=== PATIENT | male | born 1955 | race Caucasian/White ===

== ENCOUNTER → 2018-08-08 09:08 | Outpatient (CLI) | payer OTHER, SELFPAY ==
--- NOTE | 2018-08-08 | DI.ECHO.S_ITS ---
[facility]---------+ [facility] +---------+ : : [address] : [place] : : : : [id number] : : : : Phone: [phone]+ Echocardiogram Report + + :Name: MANFRED LOPEZ Study Date: 08/08/2018 Height: 70 in : :[facility] Weight: 240 lb : : Gender: Male BSA: 2.3 m2 : :: 1955 Age: 62 yrs BP: 142/98 mmHg: :Reason For Study: Dizziness : : Performed By: Jewels Dave : :Referring: JESSICA CARSON : + + Interpretation Summary The left ventricle is normal in size. The ejection fraction is estimated to be 55-60%. The right ventricle is grossly normal size. The right ventricular systolic function is normal. No significant valvular pathology seen. The ascending aorta is moderately enlarged. Procedure: A two-dimensional transthoracic echocardiogram with color flow and Doppler was performed. The study quality was technically adequate. There is no prior echocardiogram noted for this patient. The patient was in normal sinus rhythm during the exam. Left Ventricle: The left ventricle is normal in size. There is normal left ventricular wall thickness. There is no thrombus. The ejection fraction is estimated to be 55-60%. There are no focal wall motion abnormalities. MV E/A: 0.64 Med Peak E' Trip: 4.7 cm/sec E/E' med: 12.8. Right Ventricle: The right ventricle is grossly normal size. The right ventricular systolic function is normal. Atria: The left atrium is moderately dilated. The right atrium is moderately dilated. The interatrial septum is intact with no evidence for an atrial septal defect. Mitral Valve: There is mild mitral annular calcification. There is trace mitral regurgitation. Aortic Valve: The aortic valve is trileaflet. The aortic valve opens well. There is trace aortic regurgitation. Tricuspid Valve: The tricuspid valve is normal in structure and function. No tricuspid regurgitation. Pulmonic Valve: The pulmonic valve is not well seen, but is grossly normal. There is trace pulmonic regurgitation. Great Vessels: The aortic root is mildly dilated. The ascending aorta is moderately enlarged. The aortic arch is mildly enlarged. The IVC is of normal diameter and collapses greater than 50% with a sniff. This suggests a low right atrial pressure of 3 mm Hg. Pericardium/ Pleura There is no pericardial effusion. There is no pleural effusion. MMode/2D Measurements & Calculations LVIDd: 5.7 cm Ao root diam: 4.3 cm LVIDs: 4.0 cm Aortic Jxn: 3.8 cm FS: 30.6 % asc Aorta Diam: 4.4 cm EPSS: 0.90 cm Ao Arch Diam (Prox Trans): 3.5 cm IVSd: 1.1 cm LVPWd: 1.0 cm LV craig. diameter/BSA (cm/m^2): 2.5 LV sys. diameter/BSA (cm/m^2): 1.8 LA dimension: 4.7 cm RA long axis: 5.5 cm LA A2 area: 25.4 cm2 RA area: 26.0 cm2 LA A4 area: 26.8 cm2 RA vol: 104.7 ml LA length (vol): 5.7 cm RA : 46.4 ml/m2 LA vol: 101.4 ml IVC diam: 1.7 cm LA vol index: 44.9 ml/m2 RVDd major: 5.9 cm RVD1 (basal): 4.0 cm RVD2 (mid): 3.1 cm Doppler Measurements & Calculations Ao V2 max: 143.8 cm/sec MV E max trip: 60.5 cm/sec Ao V2 mean: 86.4 cm/sec MV A max trip: 94.1 cm/sec Ao max P.3 mmHg MV E/A: 0.64 Ao mean P.6 mmHg Med Peak E' Trip: 4.7 cm/sec Ao V2 VTI: 29.2 cm E/E' med: 12.8 Lat Peak E' Trip: 7.4 cm/sec E/E' lat: 8.2 E/e' average: 10.5 MV dec time: 0.31 sec MV P1/2t: 90.8 msec PA V2 max: 75.0 cm/sec MV P1/2t max trip: 61.0 cm/sec PA V2 mean: 52.2 cm/sec MVA(P1/2t): 2.4 cm2 PA mean P.2 mmHg PA Accel Time: 0.11 sec Reading Physician:PM
== END ==
PROVIDERS: PCP Student in an Organized Health Care Education/Training Program; Visit Provider Student in an Organized Health Care Education/Training Program
DX: R42 Dizziness and giddiness (principal); I77.810 Thoracic aortic ectasia
CPT/HCPCS: 93306

== ENCOUNTER → 2021-09-16 09:14 | Outpatient (CLI) | payer MEDICARE, OTHER, SELFPAY ==
[2021-09-16 10:20] LABS: Alanine Aminotransferase 17 IU/L (<50); Albumin 4.3 g/dL (3.5-5.0); Albumin Globulin Ratio 1.7 (1.0-2.8); Alkaline Phosphatase 57 U/L (38-126); Aspartate Aminotransferase 19 IU/L (17-59); BUN Creatinine Ratio 19.1 (6-22); Bilirubin Total 0.6 mg/dL (0.2-1.3); Blood Urea Nitrogen 18 mg/dL (9-20); Calcium 9.3 mg/dL (8.4-10.2); Carbon Dioxide 32 mmol/L (22-32); Chloride 102 mmol/L (98-107); Estimated Glomerular Filt Rate > 60.0 mL/min (>60); Globulin 2.5 g/dL (1.7-4.1); Glucose 97 mg/dL (80-110); HEMOLYSIS < 15 (0-50); Potassium 4.3 mmol/L (3.4-5.1); Sodium 139 mmol/L (137-145); Total Protein 6.8 g/dL (6.3-8.2)
== END ==
PROVIDERS: PCP Student in an Organized Health Care Education/Training Program; Referring Provider Student in an Organized Health Care Education/Training Program; Visit Provider Student in an Organized Health Care Education/Training Program
DX: I10 Essential (primary) hypertension (principal)
CPT/HCPCS: 36415; 80053